=== PATIENT | male | born 1990 | race Caucasian/White ===

== ENCOUNTER 2020-01-24 06:38 | Emergency (ER) | payer OTHER ==
[2020-01-24 07:07] VITALS: BP 116/75; PULSE 76; TEMP 98.6; BMI 32.5
--- NOTE | 2020-01-24 08:00 | PDOC ---
History of Present Illness - General Chief Complaint: Poison [place],Poison [place] Exposure Stated Complaint: RASH Time Seen by Provider: 01/24/20 07:10 - History of Present Illness Initial Comments: Mauro Garzon is a 29 y/o male with no reported PMH presenting today with diffuse macularpapular rash and vesicles in his bilateral upper and lower extremities. Reports that this started two days ago. Was helping a friend repair a fence. 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 No new meds/foods/detergents/soaps. Reports that the rash has spread from his lower legs to his thighs. No streaking. No swelling. No purulent discharge. Applied calamine lotion to the lower extremities with some relief. Reports itchiness over his upper and lower extremities. No fever/chills. No shortness of breath or throat closing. No abd pain. No back pain. Past History - Medical History Allergies/Adverse Reactions: Allergies Allergy/AdvReac Type Severity Reaction Status Date / Time No Known Allergies Allergy Verified 01/24/20 07:00 - Psycho-Social/Smoking History Smoking History: Never smoked Have you smoked in the past 12 months: No Information on smoking cessation initiated: No - Substance Abuse Hx (Audit-C & DAST Scrn) How often the patient has a drink containing alcohol: Never Score: In Men: 4 or > Positive; In Women: 3 or > Positive: 0 Screen Result (Pos requires Nsg. Audit-10AR): Negative In the last yr the pt used illegal drug/Rx for NonMed reason: No Score: Yes response is considered Positive: 0 Screen Result (Positive result requires Nsg. DAST-10): Negative Review of Systems - Review of Systems Comments:: GENERAL/CONSTITUTIONAL: No fever or chills. No weakness._ HEAD, EYES, EARS, NOSE AND THROAT: No change in vision. No change in hearing. No sore throat._ CARDIOVASCULAR: No chest pain or shortness of breath_ RESPIRATORY: Denies cough, hemoptysis_ GASTROINTESTINAL: No nausea, vomiting, diarrhea or constipation._ GENITOURINARY: No dysuria, frequency, or change in urination._ MUSCULOSKELETAL: No joint or muscle swelling or pain. No neck or back pain._ SKIN: Reports diffuse rash and vesicles through lower legs and forearms bilaterally. NEUROLOGIC: No headache, vertigo, loss of consciousness, or change in strength/sensation._ ENDOCRINE: No increased thirst. No abnormal weight change_ HEMATOLOGIC/LYMPHATIC: No anemia, easy bleeding, or history of blood clots._ *Physical Exam - Vital Signs Last Vital Signs Temp Pulse Resp BP Pulse Ox 98.6 F 76 20 116/75 98 01/24/20 06:56 01/24/20 06:56 01/24/20 06:56 01/24/20 06:56 01/24/20 06:56 - Physical Exam GENERAL: Awake, alert, and oriented to person/place/time, in no acute distress_ HEAD: No signs of trauma, normocephalic, atraumatic _ EYES: PERRLA, EOMI, sclera anicteric, conjunctiva clear_ NECK: Normal ROM, supple, no lymphadenopathy, JVD, or masses_ LUNGS: No distress, speaks in full sentences, clear to auscultation bilaterally _ HEART: Regular rate and rhythm, normal S1 and S2, no murmurs appreciated, peripheral pulses normal and equal bilaterally._ ABDOMEN: Soft, nontender, normoactive bowel sounds. No guarding, no rebound. No masses_ EXTREMITIES: Normal range of motion, no edema. No clubbing or cyanosis_ NEUROLOGICAL: Cranial nerves II through XII grossly intact. Normal speech, normal gait, no focal sensorimotor deficits _ SKIN: Warm, Dry, diffuse macular papular rash with intermittent vesicles in the bilateral forearms and lower legs bilaterally. Medical Decision Making - Medical Decision Making 01/24/20 08:00 29M no reported PMH presenting with rash of bilateral forearms and bilateral lower extremities. No infectious symptoms. No respiratory symptoms. Will give Benadryl 50 mg PO in the ED. Plan to d/c home with oral and topical steroids and benadryl PRN. F/u PCP. All questions answered. Return precautions given. Pt verbalized understanding and agreement with plan. Discharge - Discharge Information Problems reviewed: Yes Clinical Impression/Diagnosis: Contact dermatitis Condition: Stable Disposition: HOME - Follow up/Referral - Patient Discharge Instructions - Post Discharge Activity
[2020-01-24] MEDS ORDERED: diphenhydrAMINE HCL 50 MG CAPSULE PO ONE (08:32)
[2020-01-24] MEDS ORDERED: diphenhydrAMINE HCL 25 MG CAPSULE (FP) PO ONE (08:38)
--- NOTE | 2020-01-24 08:43 | PDOC ---
Attending Attestation - ED Attending Attestation I have performed the following: I have examined & evaluated the patient, The case was reviewed & discussed with the resident, I agree w/resident's findings & plan, Exceptions are as noted - HPI HPI: 01/24/20 08:28 29YOM without PMH who p/w rash. 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 He notes an itchy red rash mostly to the BLE spreading from feet to just above the knees, as well as BUE to the forearms. He tried applying calamine lotion which did provide some relief, but has not tried any other medications. He denies f/c/n/v/d/c, throat closing, SOB, wheezing, dizziness, lightheadedness, or other symptoms. Denies any involvement of the genitals or face. - Physicial Exam PE: 01/24/20 08:28 GENERAL: nontoxic-appearing, A/Ox4, no distress but very itchy and actively scratching his arms, answers questions appropriately, primarily [place] Citizen-speaking HEENT: PERRLA, EOMI, moist mucous membranes, no facial rash, no stridor NECK/BACK: no midline ttp, no spinal stepoff or deformity, no hematoma, full ROM, neck supple CARDIOVASCULAR: regular rate/rhythm, no MGR, strong peripheral pulses, capillary refill <2 seconds, extremities wwp, no edema LUNGS/RESPIRATORY: no respiratory distress, CTAB GI/ABDOMEN: symmetric [id number], normoactive BS, soft, no ttp, no midline pulsatile masses : no CVA tenderness MSK/EXTREMITIES: no muscle atrophy, no acute deformity SKIN: pruritic erythematous rash with superficial excoriations, with occasional scattered overlying vesicles, in streak-like configurations, all limited to the BUE forearms and dorsa of hands, also BLE from ankles to knees, no facial or genital involvement, one ruptured vesicle left medial ankle but otherwise no open areas to skin lesions NEUROLOGICAL: GCS 15, CN II-XII grossly intact, 5/5 strength proximally and distally, no facial droop - Medical Decision Making 01/24/20 08:43 29YOM without PMH presents with pruritic rash in streaks after possible poison ajit/oak exposure. Initial Vital Signs Temp Pulse Resp BP Pulse Ox 98.6 F 76 20 116/75 98 01/24/20 06:56 01/24/20 06:56 01/24/20 06:56 01/24/20 06:56 01/24/20 06:56 DDX IBNLT: most likely poison ajit or poison oak dermatitis given the streaking pattern of pruritic erythrma and the history. Possibly other contact dermatitis- type allergic reaction. Less likely eczema, psoriasis, or other chronic dermatitis given lack of prior history. Very unlikely to be any other more serious etiology i.e. SJS/TEN, bullous pemphigoid, pemphigus vulgaris, heat or chemical burn, etc. W/U ordered: None TX ordered: Prednisone and Benadryl This Pt has gotten significant relief of symptoms while in the ED. On last reassessment, vitals are wnl, pain is reasonably controlled, and exam is benign. Workup is not concerning for emergency-level pathology at this time. This Pt is appropriate for discharge with close outpatient follow up. E-Rx sent to his pharmacy for prednisone short course and hydrocortisone cream, and he can also take Benadryl as needed following bottle instructions. They are comfortable with this plan and will follow up with PCP in 1-3 days. Specific return precautions are discussed and they will come back to the ER if necessary. Discharge - Discharge Information Problems reviewed: Yes Clinical Impression/Diagnosis: Dermatitis due to plants, including poison ajit, sumac, and oak Condition: Stable Disposition: HOME - Admission No - Follow up/Referral - Patient Discharge Instructions - Post Discharge Activity
== END 2020-01-24 08:46 | disposition home or self-care (01) ==
LOC: JER 06:38
DX: L23.7 Allergic contact dermatitis due to plants, except food (principal)
CPT/HCPCS: 99283-25

== ENCOUNTER 2020-03-05 10:02 | Emergency (ER) | payer OTHER ==
[2020-03-05 10:06] VITALS: BP 153/87; PULSE 67; TEMP 98.1; BMI 28.5
[2020-03-05] MEDS ORDERED: IBUPROFEN 600 MG TABLET (FP) PO ONE ×2 (10:32→10:34)
--- NOTE | 2020-03-05 10:37 | PDOC ---
History of Present Illness - General Chief Complaint: Pain, Acute Stated Complaint: R/KNEE PAIN Time Seen by Provider: 03/05/20 10:19 History Source: Patient Exam Limitations: No Limitations - History of Present Illness Initial Comments: 03/05/20 10:33 Patient is a 29-year-old male with no past medical history who presents to the ED with a right knee injury after he banged his knee against the corner of a cabinet. He states this happened several days ago. He has noticed swelling and liquid of his knee. He denies any numbness or tingling. He does have some pain posteriorly. He has pain with walking. He was seen at an urgent care yesterday and was told he did not require an x-ray and was told he just had liquid on his knee. He states he was given medication for pain which he did not take because he had to drive. The patient denies any allergies to medications. Past History - Medical History Allergies/Adverse Reactions: Allergies Allergy/AdvReac Type Severity Reaction Status Date / Time No Known Allergies Allergy Verified 03/05/20 10:06 Home Medications: Ambulatory Orders Hydrocortisone 1% Cream [Hytone 1% Cream -] 1 applic TP BID 14 Days #1 tube 01/24/20 predniSONE [Deltasone -] 40 mg PO DAILY 4 Days #8 tablet 01/24/20 COPD: No - Psycho-Social/Smoking History Smoking History: Never smoked Have you smoked in the past 12 months: No Information on smoking cessation initiated: No - Substance Abuse Hx (Audit-C & DAST Scrn) How often the patient has a drink containing alcohol: Never Score: In Men: 4 or > Positive; In Women: 3 or > Positive: 0 Screen Result (Pos requires Nsg. Audit-10AR): Negative In the last yr the pt used illegal drug/Rx for NonMed reason: No Score: Yes response is considered Positive: 0 Screen Result (Positive result requires Nsg. DAST-10): Negative Review of Systems - Review of Systems Comments:: 03/05/20 10:35 - Review of Systems Able to Perform ROS?: Yes Constitutional: No: Fever, Chills, Loss of Appetite, Night Sweats, Weakness HEENTM: No: Eye Pain, Vision changes, Ear Pain, Throat Pain, Throat Swelling, Mouth Pain, Difficulty Swallowing Respiratory: No: Cough, Shortness of Breath, Wheezing, Sputum Production Cardiac (ROS): No: Chest Pain, Chest Tightness, Palpitations, Irregular Heart Beat, Edema ABD/GI: No: Nausea, Vomiting, Abdominal Pain, Diarrhea Musculoskeletal: No: Muscle Pain, Back Pain, Muscle Weakness, Neck Pain; positive: Right knee pain and liquid on the knee Integumentary: No: Lesions, Rash Neurological: No: Headache, Numbness, Tingling, Weakness, Speech Difficulties *Physical Exam - Vital Signs Last Vital Signs Temp Pulse Resp BP Pulse Ox 98.1 F 67 17 153/87 99 03/05/20 10:05 03/05/20 10:05 03/05/20 10:05 03/05/20 10:05 03/05/20 10:05 - Physical Exam 03/05/20 10:35 - Physical Exam General Appearance: Nourished, Appropriately Dressed, No Distress HEENT: EOMI, Normal Voice, Hearing Grossly Normal Neck: Supple, No Lymphadenopathy (R), No Lymphadenopathy (L), No Rigidity, No Decreased range of motion Respiratory/Chest: Lungs Clear, Normal Breath Sounds. No Respiratory Distress, No Accessory Muscle Use Cardiovascular: Regular Rhythm, Regular Rate, S1, S2 Musculoskeletal: Normal Inspection. Right knee with a prepatellar effusion appreciated. There is also diffuse effusion appreciated medially. Tenderness to palpation medially along the proximal aspect of the tibia. Range of motion is from 0 to 100 degrees actively. No calf tenderness to palpation. Patient is able to dorsiflex and plantar flex the foot. EHL intact. Sensation intact distally. Extremity: Normal Capillary Refill, Normal Inspection Integumentary: Normal Color, Dry. 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 Plan: -Right knee x-ray ordered -Motrin ordered -Will reassess 03/05/20 11:00 The patient has been made aware that his right knee x-ray is negative for acute pathology. He does have an effusion which is secondary to the trauma. We will wrap his knee with an Jorge bandage and have him follow-up with orthopedics for further evaluation and treatment. He can take Motrin for pain. He should ice and elevate his knee. He understands and agrees with this treatment plan and he is stable for discharge. Discharge - Discharge Information Problems reviewed: Yes Clinical Impression/Diagnosis: Effusion, right knee Condition: Stable Disposition: HOME - Follow up/Referral Referrals: Marilyn Castrejon FNP [Primary Care Provider] - Narinder Cha MD [Staff Physician] - 3 days - Patient Discharge Instructions Patient Printed Discharge Instructions: DI for Knee Effusion Additional Instructions: Apply ice and elevate your knee. Use the Jorge bandage to help the body absorb the liquid. Take Tylenol or ibuprofen for pain. You should follow-up with orthopedics for further evaluation and treatment. You have been referred to an orthopedist. Avoid any strenuous activity until you are cleared by orthopedics. Aplica hielo y eleva tu rodilla. Use el vendaje Jorge para ayudar al cuerpo a absorber el lquido. [place] Tylenol o ibuprofeno para el dolor. Debe hacer un seguimiento con un ortopedista para antonella evaluacin y tratamiento adicionales. Gonzalez sido derivado a un ortopedista. Evite cualquier actividad extenuante hasta que sea autorizado por ortopedia. Print Language: FRISIAN - Post Discharge Activity Work/Back to School Note: Back to Work
== END 2020-03-05 11:11 | disposition home or self-care (01) ==
LOC: JERFT 10:02
DX: M25.461 Effusion, right knee (principal)
CPT/HCPCS: 73564-TC-RT-FY; 99284-25